=== PATIENT | male | born 1960 | race Caucasian/White ===

== ENCOUNTER 2018-12-05 14:42 | Outpatient (CLI) | payer MEDICARE, MEDICAID ==
--- NOTE | 2018-12-05 16:31 | Diagnostic Imaging Report ---
Indication: Right upper quadrant pain Technique: Pryor-scale and duplex images of the upper abdomen were obtained Comparison: Findings: Gallbladder has been removed. Common bile duct measures 5 mm in diameter. No intrahepatic biliary ductal dilatation. Liver demonstrates normal echogenicity, no focal abnormality. Portal vein and hepatic veins are patent. Pancreas is unremarkable. Spleen is unremarkable. Left kidney measures 10.9 cm in length. Right kidney measures 11.7 cm length. Both kidneys demonstrate normal echogenicity. There is no hydronephrosis. Punctate echogenic foci are seen in the renal sinuses bilaterally, not evident previously . Abdominal aorta is partially obscured by bowel gas, visualized portions are non-aneurysmal . When compared to the prior study, common bile duct caliber is now normal, previously mildly dilated Impression: Surgically absent gallbladder. Negative for dilated bile ducts Bilateral renal sinus punctate echogenic foci could represent nonobstructing calyceal calculi Note incomplete visualization of the abdominal aorta
== END 2018-12-05 16:42 | disposition home or self-care (01) ==
LOC: ULS 14:42
DX: R10.11 Right upper quadrant pain (principal); Z90.49 Acquired absence of other specified parts of digestive tract
CPT/HCPCS: 76700

== ENCOUNTER → 2020-05-06 | Outpatient (CLI) | payer MEDICARE, MEDICAID ==
--- NOTE | 2020-05-06 13:59 | Diagnostic Imaging Report ---
EXAM: MRI MRI T Spine no Contrast COMPARISON: Fluoroscopic images 10/28/2011. HISTORY: Back pain. History of pain pump placement. Check catheter tip. TECHNIQUE: MR scanning of the thoracic spine includes sagittal T1, T2 and axial T1 and T2 sequences. FINDINGS: Alignment of the spine is anatomic. Vertebral bodies are intact without compression deformity. There is normal marrow signal. Mild disc space narrowing noted at multiple levels. There is mild bulging at T5-6 but no significant spinal canal stenosis or cord compression. Spinal cord demonstrates normal signal and caliber throughout. On the axial T2 sequence, the tip of the catheter is identified in the posterior aspect of the spinal canal terminating approximately at the T11-12 level. This corresponds with the position of the catheter noted on the prior fluoroscopic exam. No focal mass or mass effect noted on the tip of the catheter. IMPRESSION: MILD SPONDYLOSIS OF THE THORACIC SPINE. NO SIGNIFICANT DISC BULGING, SPINAL STENOSIS OR CORD COMPRESSION. THE TIP OF THE PAIN PUMP CATHETER APPEARS IN THE POSTERIOR ASPECT OF THE SPINAL CANAL APPROXIMATELY AT THE T11-12 LEVEL. NO FOCAL MASS OR MASS EFFECT ON THE TIP.
--- NOTE | 2020-05-06 14:16 | Diagnostic Imaging Report ---
EXAM: MRI MRI L Spine no Contrast HISTORY: Back pain. History of pain pump. COMPARISON: 03/27/2012 and 10/28/2011 TECHNIQUE: MR scanning of the lumbar spine includes sagittal T1, T2 and axial T1 and T2 sequences. FINDINGS: There is anatomic alignment. There is old mild superior endplate depression of L2. The rest of the vertebral bodies appear intact. There is normal marrow signal. Disc desiccation noted at several levels. No acute paraspinal soft tissue abnormality demonstrated. The pain pump catheter is difficult to separate from nerve roots but appears to run vertically along the left posterior aspect of the spinal canal. L1-L2: There is no significant central bulging. Right and left lateral bulging are 2 3 mm. Bilateral facet hypertrophy contributes to mild bilateral foraminal narrowing. L2-L3: There is also no central bulging but right and left lateral bulging are also up to 3 mm. Facet hypertrophy contributes to narrowing of the inferior aspect of both neural foramens. L3-L4: Central bulging is approximately 2 mm. Left lateral bulging is 4 mm and right lateral bulging is up to 6 mm. Bilateral facet hypertrophy contributes to mild left and severe right foraminal stenosis.. L4-L5: There is central annular prominence of 1 to 2 mm. Right and left lateral bulging approximately 3 to 4 mm. Bilateral facet hypertrophy noted contributing to severe left and moderate to severe right foraminal stenosis. L5-S1: Bulging is approximately 1 to 2 mm. Minimal central thecal sac indentation. Bilateral mild foraminal narrowing noted mainly due to hypertrophic facet disease. The conus medullaris terminates approximately at the level of L1 . There is suggestion of slight clumping of nerve roots noted just inferior to the conus. Question underlying arachnoiditis. IMPRESSION: Spondylosis of the lumbar spine as noted above. No significant spinal canal stenosis. Neural foraminal narrowing at several levels. Suggestion of some clumping of nerve roots just inferior to the conus best seen on the axial images. Question underlying arachnoiditis. The intraspinal pain pump catheter is difficult to separate from adjacent nerve roots but appears to run vertically along the left posterior aspect of the spinal canal. The tip terminates approximately at the T11-12 level as seen on the MRI of the thoracic spine exam.
--- NOTE | 2020-05-06 14:25 | Diagnostic Imaging Report ---
EXAM: X-RAY XRAY Elbow Min 3v L CLINICAL HISTORY: Elbow pain. COMPARISON: None FINDINGS: Total of 3 views of the left elbow were obtained. Alignment is anatomic. There is no fracture, bony lesions or erosions. Joint spaces are unremarkable. Surrounding soft tissue is normal. IMPRESSION: NO ACUTE BONY ABNORMALITY.
== END | disposition home or self-care (01) ==
LOC: MRI 11:57
DX: M79.602 Pain in left arm (principal); M25.522 Pain in left elbow; M47.814 Spondylosis without myelopathy or radiculopathy, thoracic region; Z97.8 Presence of other specified devices; M47.816 Spondylosis without myelopathy or radiculopathy, lumbar region
CPT/HCPCS: 72146; 72148